=== PATIENT | female | born 1935 | race Two or more races ===

== ENCOUNTER 2017-02-23 21:01 | Emergency (ER) | payer MEDICARE, OTHER ==
[~2017-02-23] VITALS: Ht 160 cm; Wt 90.7 kg
--- NOTE | 2017-02-23 21:22 | NUR ---
PT TO ER BED 12. 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 PT FAMILY STATES MECHANICAL FALL AFTER PT LOST HER BALANCE. NO KO. NO N/V. PT IS AAO. NAD NOTED. AWAITING MD MEI.
--- NOTE | 2017-02-23 21:40 | NUR ---
MACKENZIE GREEN AT BEDSIDE FOR EVAL.
[2017-02-23] MEDS ORDERED: TDAP [DIPH/PERTUSSIS/TET] 0.5 ML VIAL IM ONE ×2 (22:00→22:34)
--- NOTE | 2017-02-23 23:21 | NUR ---
PT'S LAC DERMABONDED. WOUND CARE PROVIDED. PT D/C IN STABLE CONDITION.
[2017-02-23 23:22] VITALS: BP 148/67
== END 2017-02-23 23:23 | disposition home or self-care (01) ==
LOC: ER 21:06
DX: S09.90XA Unspecified injury of head, initial encounter (principal); S01.112A Laceration without foreign body of left eyelid and periocular area, initial encounter; I10 Essential (primary) hypertension; Z23 Encounter for immunization; Z86.73 Personal history of transient ischemic attack (TIA), and cerebral infarction without residual deficits; W01.198A Fall on same level from slipping, tripping and stumbling with subsequent striking against other object, initial encounter; Y93.89 Activity, other specified; Y92.89 Other specified places as the place of occurrence of the external cause; Y99.9 Unspecified external cause status
CPT/HCPCS: 12011; 70450; 90471; 90715; 99284; A4606; A6402; Z7610